=== PATIENT | male | born 1955 | race Caucasian/White ===

== ENCOUNTER 2021-08-18 19:00 | Emergency (ER) | payer OTHER, BC ==
[2021-08-18 19:45] VITALS: BP 126/58; PULSE 80
== END 2021-08-18 19:35 | disposition left against medical advice (07) ==
LOC: VM.ED 19:00
DX: R55 Syncope and collapse (principal); S00.03XA Contusion of scalp, initial encounter; J44.9 Chronic obstructive pulmonary disease, unspecified; E78.00 Pure hypercholesterolemia, unspecified; I10 Essential (primary) hypertension; V49.49XA Driver injured in collision with other motor vehicles in traffic accident, initial encounter; Y92.410 Unspecified street and highway as the place of occurrence of the external cause
CPT/HCPCS: 93005; 93010; 99284; 99284-25